=== PATIENT | female | born 1940 | race Caucasian/White ===

== ENCOUNTER 2017-06-04 12:05 | Day surgery (SDC) | payer OTHER, MEDICARE ==
[~2017-06-04] VITALS: Ht 160 cm; Wt 88.5 kg
[~2017-06-04 12:05] MED LIST: ACIPHEX20 MG PO; CELEBREX200 MG PO; COMBIGAN O20 DROP/5 BOTH EYES; CYMBALTA60 MG PO; FLUTICASONE PRO16 GM BOTH NARES; GLUCOPHAGE500 MG PO; GLUCOTROL XL10 MG PO; HYZAAR 100-21 TABLET PO; INDERAL20 MG PO; INDERAL40 MG PO; JANUVIA100 MG PO; LEXAPRO5 MG PO; PRAVACHOL80 MG PO; SERTRALINE HCL100 MG PO; TRULICITY0.75 MG/0. SC; ULTRAM50 MG PO; WELLBUTRIN SR150 MG PO
[2017-06-04 12:31] LABS: POINT-OF-CARE METER ID UU13113694
== END 2017-06-04 13:52 | disposition home or self-care (01) ==
LOC: PAIN 12:05 → SDC 12:30 → PAIN 13:52
PROVIDERS: Anesthesiology Pain Medicine
DX: M47.26 Other spondylosis with radiculopathy, lumbar region (principal); M50.90 Cervical disc disorder, unspecified, unspecified cervical region; I10 Essential (primary) hypertension; E11.9 Type 2 diabetes mellitus without complications; R94.31 Abnormal electrocardiogram [ECG] [EKG]; K21.9 Gastro-esophageal reflux disease without esophagitis; E66.9 Obesity, unspecified; Z85.3 Personal history of malignant neoplasm of breast; Z68.37 Body mass index [BMI] 37.0-37.9, adult; Z79.84 Long term (current) use of oral hypoglycemic drugs
CPT/HCPCS: 82948; J1030; J2250; J3010; S0020

== ENCOUNTER 2017-06-11 11:47 | Day surgery (SDC) | payer OTHER, MEDICARE ==
[~2017-06-11] VITALS: Ht 160 cm; Wt 88.5 kg
[2017-06-11 13:14] LABS: POINT-OF-CARE METER ID UU13113694
== END 2017-06-11 14:30 | disposition home or self-care (01) ==
LOC: PAIN 11:47 → SDC 12:30 → PAIN 12:30
PROVIDERS: Anesthesiology Pain Medicine
DX: M47.26 Other spondylosis with radiculopathy, lumbar region (principal); M51.16 Intervertebral disc disorders with radiculopathy, lumbar region; M50.90 Cervical disc disorder, unspecified, unspecified cervical region; I10 Essential (primary) hypertension; E11.9 Type 2 diabetes mellitus without complications; E78.00 Pure hypercholesterolemia, unspecified; E66.9 Obesity, unspecified; Z68.34 Body mass index [BMI] 34.0-34.9, adult; K21.9 Gastro-esophageal reflux disease without esophagitis; Z85.3 Personal history of malignant neoplasm of breast
CPT/HCPCS: 82948; 93005; J1030; J2250; J3010; S0020

== ENCOUNTER → 2018-02-05 | Outpatient (CLI) | payer OTHER, MEDICARE | END | disposition home or self-care (01) | LOC: NUC 01-02 09:00 | DX: R25.1 Tremor, unspecified (principal) | CPT/HCPCS: 78607; A9584 ==